=== PATIENT | male | born 1970 | race Caucasian/White ===

== ENCOUNTER 2022-07-13 09:57 | Emergency (ER) | payer OTHER ==
[~2022-07-13] VITALS: Ht 170.2 cm; Wt 90.9 kg
[2022-07-13 10:02] VITALS: BP 146/96
[2022-07-13] MEDS ORDERED: LISI-894 PO (10:04)
[2022-07-13] MEDS ORDERED: OMEP20 PO (10:04)
[2022-07-13 10:43] LABS: COVID AG,FIA SOURCE NASAL SWAB
[2022-07-13 11:15] LABS: INFLUENZA TYPE B NEGATIVE FOR TYPE B (NEGATIVE)
[2022-07-13 11:19] LABS: INFLUENZA TYPE A POSITIVE FOR TYPE A (NEGATIVE)
[2022-07-13] MEDS ORDERED: BENZ-70 PO (11:53)
[2022-07-13] MEDS ORDERED: IBUP-2070 PO (11:53)
== END 2022-07-13 12:01 | disposition home or self-care (01) ==
LOC: EMS 10:11
DX: J10.1 Influenza due to other identified influenza virus with other respiratory manifestations (principal); Z20.822 Contact with and (suspected) exposure to COVID-19; I10 Essential (primary) hypertension; K21.9 Gastro-esophageal reflux disease without esophagitis; R50.9 Fever, unspecified; Z28.311 Partially vaccinated for COVID-19
CPT/HCPCS: 87804; 99283

== ENCOUNTER 2023-10-29 08:48 | Day surgery (SDC) | payer MEDICARE ==
[~2023-10-29] VITALS: Ht 167.6 cm; Wt 86.2 kg
[~2023-10-29 08:48] MED LIST: ATOR20TA65 PO; BALANCED SALT 15 ML OPHTHALMIC IRRIG.SOLN ONE; KETOROLAC TROMETHAMINE 0.5% 5 ML OPHTHALMIC SOLUTION ONE; LIDOCAINE/PF 1% 2 ML VIAL ONE; LISI-894 PO; MONT-40 PO; MOXIFLOXACIN HCL 0.5% 3 ML OPHTHALMIC SOLUTION ONE; PHENYLEPHRINE HCL 2.5% 2 ML OPHTHALMIC SOLUTION ONE; POVIDONE-IODINE 5% 30 ML OPHTHALMIC SOLUTION ONE; TETRACAINE HCL/PF 0.5% 4 ML OPHTHALMIC SOLUTION ONE; TROPICAMIDE 1% 2 ML OPHTHALMIC SOLUTION ONE
[2023-10-29] MEDS ORDERED: CHONDR SULF A SOD/HYALURONATE 1.05 ML KIT IO ONE (08:49)
[2023-10-29] MEDS ORDERED: HYALURONATE SOD 8.5MG/0.85ML 10 MG/ML SYRINGE IO ONE (08:49)
[2023-10-29] MEDS ORDERED: FentaNYL CITRATE PF 100 MCG/2 ML VIAL IVP ONE (08:49)
[2023-10-29] MEDS ORDERED: MIDAZOLAM HCL 2 MG/2 ML VIAL IVP ONE ×2 (08:49)
[2023-10-29] MEDS ORDERED: OMEP20 PO (09:06)
[2023-10-29] MEDS: KETOROLAC TROMETHAMINE 0.5% 5 ML OPHTHALMIC SOLUTION OS SCH (09:19)
[2023-10-29] MEDS: TROPICAMIDE 1% 2 ML OPHTHALMIC SOLUTION OS SCH (09:19)
[2023-10-29] MEDS: PHENYLEPHRINE HCL 2.5% 2 ML OPHTHALMIC SOLUTION OS SCH (09:19)
[2023-10-29] MEDS: MOXIFLOXACIN HCL 0.5% 3 ML OPHTHALMIC SOLUTION OS SCH (09:20)
[2023-10-29] MEDS: RINGERS SOLUTION,LACTATED 500 ML IV ONE (09:45)
== END 2023-10-29 10:50 | disposition home or self-care (01) ==
LOC: SURGERY 08:48
PROVIDERS: ATTEND Ophthalmology
DX: H25.11 Age-related nuclear cataract, right eye (principal)
CPT/HCPCS: 93005; 66982; J3010; J3490; J2250; Q9967; V2632